=== PATIENT | male | born 2005 | race Caucasian/White ===

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

== ENCOUNTER 2024-05-04 16:04 | Emergency (ER) | payer BC, OTHER ==
[~2024-05-04] VITALS: Ht 170.2 cm; Wt 84.8 kg
[~2024-05-04 16:04] MED LIST changes: +LIDO20SO16 PO
[2024-05-04 16:10] VITALS: BP 128/79; PULSE 111; TEMP 99; O2SAT 98
[2024-05-04 17:30] VITALS: RESP 16
[2024-05-04] MEDS: ketorolac trometh 30MG/ML vial 30 MG/ML VIAL IM ONE (17:30)
[2024-05-04] MEDS: CefTRIAXone 1000mg IM Kit (w/lidocaine diluent) IM ONE (17:30)
[2024-05-04] MEDS ORDERED: SULF1TAB49 PO (17:32)
== END 2024-05-04 17:37 | disposition home or self-care (01) ==
LOC: ER 16:05
DX: L02.416 Cutaneous abscess of left lower limb (principal); Z79.899 Other long term (current) drug therapy
CPT/HCPCS: 96372; 99284; J0696; J1885